=== PATIENT | female | born 1980 | race American Indian/Alaskan Native ===

== ENCOUNTER 2017-09-02 16:25 | Emergency (ER) | payer MEDICAID ==
[2017-09-03 00:41] LABS: Basophils % (Auto) 0.6 % (0.0-1.8); Eosinophils # (Auto) 0.1 K/mm3 (0.0-0.4); Eosinophils % (Auto) 1.7 % (0.0-4.3); Hematocrit 38.3 % (30.3-42.9); Hemoglobin 12.2 gm/dl (10.1-14.3); Lymphocytes # (Auto) 2.9 K/mm3 (1.2-5.4); Lymphocytes % (Auto) 43.6 % (13.4-35.0); Mean Corpuscular HGB Conc 32 % (30-34); Mean Corpuscular Volume 75 fl (79-97); Monocytes # (Auto) 0.4 K/mm3 (0.0-0.8); Monocytes % (Auto) 5.7 % (0.0-7.3); Platelet Count 228 K/mm3 (140-440); Red Blood Count 5.11 M/mm3 (3.65-5.03); Red Cell Distribution Width 16.3 % (13.2-15.2)
[2017-09-03 00:52] LABS: Mean Corpuscular Hemoglobin 24 pg (28-32)
--- NOTE | 2017-09-03 01:57 | Emergency Department Report ---
ED ENT HPI - General Chief complaint: Dental/Oral Stated complaint: FEVER, TINGLEING Time Seen by Provider: 09/03/17 00:15 Source: patient Mode of arrival: Ambulatory Limitations: No Limitations - History of Present Illness Initial comments: This is a 36 y.o. female presents with oral pain to right side. Patient states she had oral surgery in November 2016 and the surgeon nicked a nerve and she haven' t been right since. He placed her on two antibiotics and told her to follow up with her primary care provider. She followed up with [facility] in [place] and they diagnosed it as osteomyelitis and placed on clindamycin and augmentin. She is still having right side facial swelling and pain. States it is not her teeth in pain, it is the gums. She is having numbness and tingling, which [place] started her on gabapentin. She is still having numbness, tingling, pain, and swelling. MD complaint: tooth pain (Teeth are not in pain, gum on right lower side hurts) -: month(s) (6) Location: other (gums on right lower side from #27 to #32) Severity: mild Severity scale (0 -10): 4 Quality: burning, aching Consistency: constant Improves with: none Worsens with: none Context- Dental: history of dental caries (root nilson November 2016 and surgeon nicked a nerve) Associated Symptoms: pain with swallowing (of right lower gum) - Related Data Allergies Allergy/AdvReac Type Severity Reaction Status Date / Time No Known Allergies Allergy Unverified 09/02/17 17:28 ED Dental HPI - General Chief complaint: Dental/Oral Stated complaint: FEVER, TINGLEING Time Seen by Provider: 09/03/17 00:15 Source: patient Mode of arrival: Ambulatory Limitations: No Limitations - Related Data Allergies Allergy/AdvReac Type Severity Reaction Status Date / Time No Known Allergies Allergy Unverified 09/02/17 17:28 ED Review of Systems ROS: Stated complaint: FEVER, TINGLEING Other details as noted in HPI Constitutional: denies: chills, fever ENT: dental pain (lower gums on right side). denies: ear pain, throat pain Respiratory: denies: cough, shortness of breath, wheezing Cardiovascular: denies: chest pain, palpitations Gastrointestinal: denies: abdominal pain, nausea, diarrhea Neurological: as per HPI, numbness (numbness and tingling on right side of face) . denies: headache, weakness, paresthesias, confusion, abnormal gait, vertigo ED Past Medical Hx - Past Medical History Previous Medical History?: Yes Hx Hypertension: Yes Hx Arthritis: Yes - Surgical History Past Surgical History?: Yes Additional Surgical History: oral - Social History Smoking Status: Current Every Day Smoker Substance Use Type: None ED Physical Exam - General Limitations: No Limitations General appearance: alert, in no apparent distress - Head Head exam: Present: atraumatic, normocephalic - ENT ENT exam: Present: normal exam, normal orophraynx, mucous membranes moist, TM's normal bilaterally - Neck Neck exam: Present: normal inspection - Respiratory Respiratory exam: Present: normal lung sounds bilaterally. Absent: respiratory distress - Cardiovascular Cardiovascular Exam: Present: regular rate, normal rhythm. Absent: systolic murmur, diastolic murmur, rubs, gallop - GI/Abdominal GI/Abdominal exam: Present: soft, normal bowel sounds - Neurological Exam Neurological exam: Present: alert, oriented X3, normal gait - Skin Skin exam: Present: warm, dry, intact, normal color. Absent: rash ED Course Vital Signs 09/02/17 17:24 Temperature 99.1 F Pulse Rate 57 L Respiratory 16 Rate Blood Pressure 116/41 O2 Sat by Pulse 100 Oximetry ED Medical Decision Making - Lab Data Result diagrams: 09/03/17 00:24 - Medical Decision Making This is a 36 y.o. female presents with pain right side of face and lower gums since November of 2016. She had oral surgery November 2016 and surgeon nicked a nerve. They placed her on antibiotics twice and informed to f/u with PCP. She went to [facility] and they diagnosed it as osteomylitis and started her on clindamycin, augmentin, and gabapentin. She is taking gabapentin as prescribed and still having numbness and tingling. She is still having numbness, tingling, and pain to lower gums on right side from #27 to #32. On physical examination normal exam. CBC: mild anemia, normal WBC 6.7. Referral to Neurology and ENT. Critical care attestation.: If time is entered above; I have spent that time in minutes in the direct care of this critically ill patient, excluding procedure time. ED Disposition Clinical Impression: Pain following oral surgery Disposition: DC-01 TO HOME OR SELFCARE Is pt being admited?: No Does the pt Need Aspirin: No Condition: Stable Additional Instructions: Follow up with neurology on referral. Referrals: OSITO EARL MD [Primary Care Provider] - 3-5 Days CHRISTA DEWITT MD [Staff] - 3-5 Days OTTO URENA MD [Staff Physician] - 3-5 Days ANA LILIA WELLER MD [Staff Physician] - 3-5 Days RIGOBERTO ZIMMER MD [Staff Physician] - 3-5 Days Time of Disposition: 02:21 Print Language: GREENLANDIC
[2017-09-03 02:53] VITALS: BP 120/67
== END 2017-09-03 02:30 | disposition home or self-care (01) ==
LOC: ED 16:25
DX: K08.89 Other specified disorders of teeth and supporting structures (principal); I10 Essential (primary) hypertension; M19.90 Unspecified osteoarthritis, unspecified site; F17.200 Nicotine dependence, unspecified, uncomplicated; G89.18 Other acute postprocedural pain
CPT/HCPCS: 36415; 85025; 99283